=== PATIENT | male | born 1995 | race Caucasian/White ===

== ENCOUNTER 2017-03-25 03:05 | Emergency (ER) | payer SELFPAY ==
[~2017-03-25] VITALS: Ht 195.6 cm; Wt 72.5 kg
[2017-03-25] MEDS ORDERED: LIDOCAINE 1%-EPI 1:100K, 20ML SQ ONE (03:30)
[2017-03-25] MEDS ORDERED: SODIUM CHLORIDE 0.9% 1,000ML IVBOLUS ONE (03:30)
[2017-03-25] MEDS ORDERED: CEFAZOLIN PMX 1GM/50ML 50 ML IVPB ONE (03:30)
[2017-03-25] MEDS ORDERED: SODIUM CHLORIDE FLUSH 10ML SYR IVF ONE (03:30)
[2017-03-25] MEDS ORDERED: CEFAZOLIN PMX 1GM/50ML 50 ML ONE (03:42)
[2017-03-25] MEDS ORDERED: LIDOCAINE 1%, 20ML ONE (03:46)
[2017-03-25 03:52] LABS: ASPARTATE AMINO TRANSFERASE 24 U/L (15-37); BLOOD UREA NITROGEN 11 mg/dL (7-18)
[2017-03-25] MEDS ORDERED: LIDOCAINE 1%, 20ML INFIL ONE (04:00)
[2017-03-25] MEDS ORDERED: BACITRACIN ZINC OINT 500U/GM, 0.9 GM ONE (04:48)
[2017-03-25 05:33] VITALS: BP 123/78
== END 2017-03-25 05:37 ==
LOC: ED 05:31
DX: S01.112A Laceration without foreign body of left eyelid and periocular area, initial encounter (principal); F10.129 Alcohol abuse with intoxication, unspecified; W01.0XXA Fall on same level from slipping, tripping and stumbling without subsequent striking against object, initial encounter; Y93.89 Activity, other specified; Y92.89 Other specified places as the place of occurrence of the external cause; Y99.8 Other external cause status
CPT/HCPCS: 13152; 36415; 70450; 70486; 72125; 80053; 80307; 85025; 96365; 99285; J0690; J3490; J7030

== ENCOUNTER 2020-04-16 12:30 | Emergency (ER) | payer MEDICAID ==
[~2020-04-16] VITALS: Ht 172.7 cm; Wt 85.0 kg
[2020-04-16 12:35] VITALS: BP 131/83
--- NOTE | 2020-04-16 13:43 | NUR ---
PT SITTING UP ON ACUTE DISTRESS. VERBALIZED UNDERSTANDING OF CRUTCH USE. REVIEWED DC INSTRUCTIONS WITH PT. UNDERSTANDING VERBALIZED. NO IV TO DC. PT LEFT CRUTCH WALKING
== END 2020-04-16 13:47 | disposition home or self-care (01) ==
LOC: ED 13:33
DX: S93.492A Sprain of other ligament of left ankle, initial encounter (principal); X50.1XXA Overexertion from prolonged static or awkward postures, initial encounter; Y93.89 Activity, other specified; Y92.098 Other place in other non-institutional residence as the place of occurrence of the external cause; Y99.8 Other external cause status
CPT/HCPCS: 99283